=== PATIENT | male | born 1990 | race Caucasian/White ===

== ENCOUNTER 2017-03-12 16:40 | Emergency (ER) | payer SELFPAY ==
[~2017-03-12] VITALS: Ht 170.2 cm; Wt 59.0 kg
[2017-03-12 16:40] VITALS: BP 136/76
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
[2017-03-12 17:16] VITALS: BP 137/79
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
== END 2017-03-12 17:16 ==
LOC: MED 16:40
DX: Z02.89 Encounter for other administrative examinations (principal); S01.01XA Laceration without foreign body of scalp, initial encounter; X58.XXXA Exposure to other specified factors, initial encounter; Y93.89 Activity, other specified; Y92.89 Other specified places as the place of occurrence of the external cause; Y99.8 Other external cause status
CPT/HCPCS: 90471; 90715; 99283